=== PATIENT | male | born 2000 | race Two or more races ===

== ENCOUNTER 2018-01-22 08:25 | Emergency (ER) | payer OTHER ==
--- NOTE | 2018-01-22 08:36 | ED ---
Psychiatric Complaint - HPI Summary HPI Summary: Pt is a 17 y/o male BIB [facility] who presents to the ED c/o SI. He states last night he found out his girlfriend of 3 years has been cheating on him for a year. He was in shock and felt extremely anxious, and did not get any sleep last night. He states he doesnt have many friends, so now he feels like he doesnt have anybody close in his life. Pt states he told a friend he wanted to jump off a bridge, but this was just for attention and not an actual plan. He denies any HI, and is otherwise healthy. He denies using any alcohol or drugs last night. Pt has seen therapists before sporadically, and states he maybe had depression in the past. He denies any prior hospitalization for mental health issues. Vital signs while in room: HR ~100 bpm, BP 135/83. Pt states he doesn't want his hospital visit to be revealed to his parents, and is anxious about getting blood drawn. - History Of Current Complaint Chief Complaint: EDMentalHealth Hx Obtained From: Patient, EMS - [place] police- Officer [place] Onset/Duration: Sudden Onset, Still Present Timing: Hours - Since 23:00 Character: Depressed, Anxious Aggravating Factor(s): Recent Stress - Found out girlfriend cheating on him Alleviating Factor(s): Nothing Associated Signs And Symptoms: Positive: Sleep Disturbance Related History: Negative For: Admissions Related To Substance Abuse Has Suicidal: Reports: Thoughts. Denies: With A Plan Has Homicidal: Denies: Thoughts - Allergies/Home Medications Allergies/Adverse Reactions: Allergies Allergy/AdvReac Type Severity Reaction Status Date / Time No Known Allergies Allergy Verified 03/19/17 10:38 PMH/Surg Hx/FS Hx/Imm Hx Endocrine/Hematology History: Denies: Hx Diabetes Cardiovascular History: Denies: Hx Hypertension, Hx Pacemaker/ICD History: Denies: Hx Renal Disease Sensory History: Denies: Hx Hearing Aid Psychiatric History: Denies: Hx Panic Disorder - Surgical History Surgery Procedure, Year, and Place: WISDOM EXTRACTION Infectious Disease History: No Infectious Disease History: Denies: Traveled Outside the [place] in Last 30 Days - Family History Known Family History: Positive: Other - Pancreatic cancer - grandfather, CVA and dementia - father - Social History Alcohol Use: Occasionally Hx Substance Use: No Substance Use Type: Reports: None Hx Tobacco Use: No Smoking Status (MU): Never Smoked Tobacco Review of Systems Negative: Fever Psychological: Other - SI, NEGATIVE: HI Positive: Anxious All Other Systems Reviewed And Are Negative: Yes Physical Exam - Summary Physical Exam Summary: Appearance: Well-appearing, moderate pain distress, well-nourished Skin: Warm, color reflects adequate perfusion, dry Head: Normal Head/Face inspection, atraumatic Eyes: Conjunctiva clear ENT: Normal inspection Neck: Supple, no nodes, no JVD Respiratory: Lungs clear, normal breath sounds, no respiratory distress Cardio: RRR, No murmur, pulses normal, brisk capillary refill Abdomen: Soft, nontender Bowel sounds: Present Musculoskeletal: Strength Intact/ROM intact, no calf tenderness, no edema. Psychological: Normal Neuro: Alert, muscle tone normal, no focal deficit Triage Information Reviewed: Yes Vital Signs On Initial Exam: Initial Vitals Temp Pulse Resp BP Pulse Ox 100.1 F 118 20 135/83 99 01/22/18 08:28 01/22/18 08:28 01/22/18 08:28 01/22/18 08:28 01/22/18 08:28 Vital Signs Reviewed: Yes Diagnostics - Vital Signs Vital Signs Temp Pulse Resp BP Pulse Ox 01/22/18 08:28 100.1 F 118 20 135/83 99 - Laboratory Result Diagrams: 01/22/18 09:32 01/22/18 09:32 Lab Statement: Any lab studies that have been ordered have been reviewed, and results considered in the medical decision making process. Re-Evaluation - Re-Evaluation First Eval Re-Evaluation Time: 10:29 Change: Unchanged Comment: Spoke to pt about lab results. Pt will be moved to the FLEX unit. Course/Dx - Course Course Of Treatment: Safety monitor is in place. Pt is medically cleared at 10: 35 and is awaiting MHE in FLEX. - Differential Dx/Clinical Impression Provider Diagnosis: Depression - Physician Notifications Discussed Care Of Patient With: Jordan Flores Time Discussed With Above Provider: 12:18 Instructed by Provider To: Other - Pt will be discharged. Discharge - Sign-Out/Discharge Documenting (check all that apply): Patient Departure - Discharge - Discharge Plan Condition: Stable Disposition: HOME Patient Education Materials: Depression (ED), Help Prevent Suicide (ED) Forms: *School Release Referrals: [facility] [Outside] - 2 Days Additional Instructions: Return to the emergency department for new or worsening symptoms - Attestation Statements Document Initiated by Scribe: Yes Documenting Scribe: Mariza Bates Provider For Whom Scribe is Documenting (Include Credential): Guadalupe Mooney MD Scribe Attestation: Mariza Farris, scribed for Guadalupe Mooney MD on 01/22/18 at 1220.
[2018-01-22] MEDS ORDERED: Ammonia Inhalant* 1 EA AMP ONE (08:56)
[2018-01-22 09:09] LABS: Urine Appearance Clear; Urine Blood Negative (Negative); Urine Color Yellow; Urine Ketones Negative (Negative); Urine Protein Negative (Negative); Urine Specific Gravity 1.018 (1.010-1.030); Urine Urobilinogen Negative (Negative)
[2018-01-22 09:51] LABS: Hematocrit 45 % (42-52); Mean Corpuscular HGB Conc 35 g/dl (31-36); Mean Corpuscular Hemoglobin 30 pg (27-31); Mean Corpuscular Volume 84 fL (80-94); Mean Platelet Volume 7.1 um3 (7.4-10.4); Platelet Count 208 10^3/ul (150-450); Red Blood Count 5.38 10^6/ul (4.00-5.40); Red Cell Distribution Width 12 % (10.5-15); White Blood Count 8.6 10^3/ul (3.5-10.8)
[2018-01-22 10:18] LABS: ABS Basophils 0 10^3/ul (0-0.2); ABS Eosinophils 0 10^3/ul (0-0.6); ABS Lymphocytes 1.6 10^3/ul (1.0-4.8); ABS Monocytes 0.5 10^3/ul (0-0.8); ABS Neutrophils 6.4 10^3/ul (1.5-7.7); ABS Nucleated RBC 0.1 10^3/ul; Eosinophil % 0.5 % (0-6); Lymphocyte % 18.6 % (25-47); Nucleated Red Blood Cells % 1.5
[2018-01-22 12:03] VITALS: BP 129/80
== END 2018-01-22 12:39 | disposition home or self-care (01) ==
LOC: ED 08:25
DX: F32.9 Major depressive disorder, single episode, unspecified (principal)
CPT/HCPCS: 36415; 80053; 80307; 80320; 80329; 81003; 82550; 84443; 85025; 99284; A9270-GY; G0480